=== PATIENT | male | born 1970 | race Hispanic/Latino ===

== ENCOUNTER 2019-02-17 18:15 | Emergency (ER) | payer OTHER ==
[2019-02-17] MEDS ORDERED: Ketorolac Tromethamine 30 MG/ML VIAL ONE (18:40)
--- NOTE | 2019-02-17 21:26 | RAD ---
CHEST TWO VIEWS: HISTORY: Chest pain. TECHNIQUE: PA and lateral views of the chest are obtained. FINDINGS: The lungs are well aerated. No evidence of active intrathoracic disease is seen. No evidence of eff usions, pneumonia, or pneumothorax is seen. IMPRESSION: Unremarkable two views chest. POS: [facility]
--- NOTE | 2019-02-17 21:42 | RAD ---
THORACIC SPINE AP AND LATERAL AND CONED DOWN VIEWS: HISTORY: Thoracic back pain for two months. Presented to the emergency room for emergent workup. TECHNIQUE/FINDINGS: AP, lateral, and Swimmer's views of the thoracic spine demonstrate changes of spondylosis. No eviden ce of significant fractures or acute bony lesions seen. IMPRESSION: Changes of spondylosis with no acute thoracic spine abnormality seen. POS: [facility]K
== END 2019-02-17 20:31 | disposition home or self-care (01) ==
LOC: SCSER 18:15
DX: M54.6 Pain in thoracic spine (principal)
CPT/HCPCS: 71046; 72072; 96372; J1885